=== PATIENT | female | born 1965 | race Caucasian/White ===

== ENCOUNTER 2018-05-03 11:38 | Emergency (ER) | payer OTHER ==
[~2018-05-03] VITALS: Ht 167.6 cm; Wt 74.8 kg
[2018-05-03] MEDS ORDERED: HYDROCODON-ACE1 EA13 PO (13:56)
[2018-05-03] MEDS ORDERED: IBUPROFEN600 MG PO (13:56)
[2018-05-03] MEDS ORDERED: METHYLPREDNISOLO4 M1 PO (13:56)
[2018-05-03] MEDS ORDERED: CYCLOBENZAPRINE5 MG PO (13:56)
== END 2018-05-03 14:06 | disposition home or self-care (01) ==
LOC: ED 11:38
DX: M54.16 Radiculopathy, lumbar region (principal); F17.200 Nicotine dependence, unspecified, uncomplicated; Z88.5 Allergy status to narcotic agent
CPT/HCPCS: 72100; 96372; 99283; J1100; J1885

== ENCOUNTER 2020-01-12 09:56 | Emergency (ER) | payer OTHER ==
[~2020-01-12] VITALS: Ht 167.6 cm; Wt 72.6 kg
[~2020-01-12 09:56] MED LIST: CYCLOBENZAPRINE5 MG PO; HYDROCODON-ACE1 EA13 PO; IBUPROFEN600 MG PO; METHYLPREDNISOLO4 M1 PO
--- NOTE | 2020-01-12 15:58 | EKG ---
[facility] [address] [place], [place] [address] Signed Normal sinus rhythm Normal ECG No previous ECGs available Confirmed by SCOTTY ROSA DO ([id number]) on 01/12/2020 3:58:03 PM Electronically Signed By: SCOTTY ROSA DO 01/12/20 1558 PATIENT NAME: MARCELINO GREY Electrocardiogram DATE OF : 67 PHYSICIAN: SCOTTY ROSA DO REPORT #: [id number] REPORT IS CONFIDENTIAL AND NOT TO BE RELEASED WITHOUT AUTHORIZATION
== END 2020-01-12 13:56 | disposition home or self-care (01) ==
LOC: ED 09:56
DX: I25.9 Chronic ischemic heart disease, unspecified (principal); F17.200 Nicotine dependence, unspecified, uncomplicated; Z88.5 Allergy status to narcotic agent; Z79.52 Long term (current) use of systemic steroids; Z79.899 Other long term (current) drug therapy
CPT/HCPCS: 71046; 80053; 83690; 84484; 85025; 93005; 93010; 99285-25; 99406

== ENCOUNTER 2023-03-30 11:16 | Emergency (ER) | payer OTHER ==
[~2023-03-30] VITALS: Ht 167.6 cm; Wt 70.2 kg
[2023-03-30] MEDS ORDERED: PREDNISONE20 MG PO (11:38)
[2023-03-30 13:05] VITALS: BP 132/75
== END 2023-03-30 13:05 | disposition home or self-care (01) ==
LOC: ED 11:16
DX: L56.8 Other specified acute skin changes due to ultraviolet radiation (principal); X32.XXXA Exposure to sunlight, initial encounter; F17.200 Nicotine dependence, unspecified, uncomplicated; Z88.5 Allergy status to narcotic agent; Z79.899 Other long term (current) drug therapy
CPT/HCPCS: 99282